=== PATIENT | male | born 1980 | race Caucasian/White ===

== ENCOUNTER 2022-12-13 10:03 | Emergency (ER) | payer MEDICAID ==
[~2022-12-13] VITALS: Ht 175.3 cm; Wt 95.5 kg
[2022-12-13] MEDS ORDERED: LISI-892 PO (10:11)
[2022-12-13] MEDS ORDERED: PROP10TA73 PO (10:11)
[2022-12-13] MEDS ORDERED: IBUP-1492 PO (15:01)
[2022-12-13] MEDS ORDERED: HYDR-4723 PO (15:01)
[2022-12-13 15:05] VITALS: BP 191/131
== END 2022-12-13 15:07 | disposition home or self-care (01) ==
LOC: EMS 10:11
DX: S63.501A Unspecified sprain of right wrist, initial encounter (principal); M79.604 Pain in right leg; M25.511 Pain in right shoulder; I10 Essential (primary) hypertension; W10.8XXA Fall (on) (from) other stairs and steps, initial encounter; Y93.89 Activity, other specified; Y92.89 Other specified places as the place of occurrence of the external cause; Y99.8 Other external cause status
CPT/HCPCS: 99283